=== PATIENT | male | born 1960 | race Caucasian/White ===

== ENCOUNTER 2017-04-22 07:29 | Emergency (ER) | payer BC ==
[2017-04-22] MEDS ORDERED: Albuterol 2.5 MG/3 ML NEB.SOL* (0.083%) INH ONE (08:17)
[2017-04-22] MEDS ORDERED: Ipratropium 0.5MG/2.5ML NEB* 0.5 MG/2.5 ML NEB.SOLN INH ONE (08:17)
[2017-04-22] MEDS ORDERED: Acetaminophen TAB* 325 MG PO ONE (09:04)
[2017-04-22 09:47] VITALS: BP 150/96
--- NOTE | 2017-04-22 11:28 | UC ---
Martin Loya Angela, scribed for Stephenie Alford DO on 04/22/17 at 0818 . General HPI - HPI Summary HPI Summary: This pt is a 57 y/o male presenting to [facility] c/o cough and SOB. He describes "it feels like I am breathing through a wet straw" and feels "bubbles." Pt reports a non-productive cough, but notes it is not keeping him up at night. He notes he feels "numbness" on his chest. Pt states he was diagnosed with influenza 5 days ago and was given Tamiflu, he still has one dose left. Pt notes his symptoms began with chest congestion. Pt reports most of his symptoms have alleviated except for his cough and headache. He has taken aspirin with some relief of headache. Denies sore throat, eye drainage, rhinorrhea, abd pain, nausea. He denies any PMHx. - History of Current Complaint Stated Complaint: CONGESTED Hx Obtained From: Patient Onset/Duration: Lasting Days, Still Present Timing: Constant Current Severity: Moderate Pain Intensity: 0 Aggravating: lying down Alleviating: nothing Associated Signs & Symptoms: Positive: Cough, Headache, SOB, Other - NEG: sore throat, eye drainage, rhinorrhea. Negative: Abdominal Pain, Nausea, Vomiting - Allergy/Home Medications Allergies/Adverse Reactions: Allergies Allergy/AdvReac Type Severity Reaction Status Date / Time Tetracyclines Allergy Hives Verified 04/22/17 07:36 Home Medications: Home Medications Aspirin 3 tab PO DAILY PRN 04/22/17 [History Confirmed 04/22/17] PMH/Surg Hx/FS Hx/Imm Hx Endocrine History: Thyroid Disease Other Cardiovascular History: DENIES: HTN - Surgical History Surgical History: None - Family History Known Family History: Positive: Cardiac Disease - Social History Alcohol Use: None Substance Use Type: None Smoking Status (MU): Never Smoked Tobacco Review of Systems Constitutional: Negative Skin: Negative Eyes: Negative ENT: Negative Respiratory: Shortness Of Breath, Cough Cardiovascular: Negative Gastrointestinal: Negative Genitourinary: Negative Motor: Negative Neurovascular: Negative Musculoskeletal: Arthralgia Neurological: Headache, Numbness - chest Psychological: Negative All Other Systems Reviewed And Are Negative: Yes Physical Exam Triage Information Reviewed: Yes Appearance: Well-Appearing, No Pain Distress, Well-Nourished Vital Signs: Initial Vital Signs Temp 97.7 F 04/22/17 07:36 Pulse 79 04/22/17 07:36 Resp 18 04/22/17 07:36 BP 143/92 04/22/17 07:36 Pulse Ox 98 04/22/17 07:36 Vital Signs Reviewed: Yes Eyes: Positive: Conjunctiva Clear. Negative: Discharge ENT: Positive: TMs normal. Negative: Tonsillar swelling, Tonsillar exudate, Trismus Neck exam: Normal Neck: Positive: Supple Respiratory: Positive: Normal breath sounds, No respiratory distress, No accessory muscle use, Wheezing - scattered wheezes on auscultation Cardiovascular: Positive: RRR, No Murmur Musculoskeletal Exam: Normal Neurological: Positive: Alert, Muscle Tone Normal Psychological Exam: Normal Psychological: Positive: Age Appropriate Behavior Skin Exam: Normal, Other - warm, dry, normal color Re-Evaluation - Re-Evaluation First Eval Re-Evaluation Time: 08:55 Change: Improved Comment: Pt has finished his breathing treatment. Wheezing has improved. Pt is feeling jittery from the duoneb and feels cold. He c/o headache currently. Pt denies chest pain, dizziness. Second Eval Re-Evaluation Time: 09:25 Change: Improved Comment: Pt rested for 15 minutes. Pt is feeling normalized from the jittery experience. Course/Dx - Course Course Of Treatment: In the [facility] course the patient was given a breathing treatment and Tylenol for the headache. Pt felt jittery and cold after the duoneb. He rested for 15 minutes and felt better. Patient will be discharged with prescription for albuterol, Tessalon, mucinex, and prednisone and follow up from PCP. The patient is agreeable with this plan. Medications reviewed. Allergies reviewed. - Differential Dx - Multi-Symptom Provider Diagnoses: Influenza. Bronchospasm. Elevated blood pressure without diagnosis of hypertension Discharge - Discharge Plan Condition: Stable Disposition: HOME Prescriptions: Albuterol HFA INHALER* [Ventolin HFA Inhaler*] 2 puff INH Q4H PRN #1 mdi PRN Reason: Sob/Wheezing Benzonatate CAP* [Tessalon 100 MG CAP*] 100 mg PO TID #30 cap guaiFENesin ER TAB [Mucinex*] 600 mg PO BID PRN #1 box PRN Reason: Cough predniSONE TAB* [Deltasone TAB*] 40 mg PO DAILY #10 tab Patient Education Materials: Influenza (ED), Bronchospasm (ED) Forms: *Gen. Provider Communication, *Work Release Referrals: Sara Wadsworth MD [Primary Care Provider] - (Follow up in 3-5 days.) Additional Instructions: INHALED BRONCHODILATORS: You have received a prescription for an inhaled bronchodilator -- a medication which stimulates the airways in the lung to dilate. This improves the flow of air in asthma, bronchitis, and emphysema. These medicines have some similarity to adrenaline, and can cause similar side effects: shakiness, racing heart, and a sense of nervousness. These side effects decrease with time. Contact your doctor if these side effects are severe. Do not over-use the medicine. Too-frequent use of the inhaler may make it ineffective. Call your doctor if the inhaler is not controlling your symptoms at the prescribed doses. If you find that the Albuterol inhaler makes you as jittery as the nebulizer, you do not need to continue to use it. EXPECTORANT MEDICATION: An expectorant medicine has been prescribed. This type of drug makes mucous thinner, helping the sinuses, nose, and bronchial tubes to remain free of pus and mucous. Expectorants make a cough less severe and more comfortable, and help infected sinuses drain. In general, antihistamines defeat the purpose of the expectorant by making mucous thicker. They should be avoided unless specifically recommended by your physician. TESSALON PERLES: You have received a prescription for Tessalon Perles (benzonatate). This is a non-narcotic medicine for relief of cough. It usually works in about 15- 20 minutes and lasts around four hours. Tessalon Perles should be swallowed. They should not be chewed or dissolved in the mouth (this can produce temporary numbing of the mouth and choking can occur). If you develop any adverse effects such as wheezing, shortness of breath, hives, rash, itching, or lightheadedness, please return at once. CORTICOSTEROID MEDICATION: You have been given a medicine of the cortisone class. This medication is used to control inflammation or allergy. It is usually only given for a short period of time, until the acute process subsides. There are usually no side effects from short-term use of cortisone-like medications. Some persons feel an increased sense of well-being and are not sleepy at bedtime. Long-term use of cortisone medications is best avoided, unless required for a severe condition. If your condition does not remit, or relapses after the course of corticosteroid medication, you should consult your physician. Contact the physician if you develop lightheadedness, black or tarry stools , swelling of the legs, or significant rapid change in weight. Your blood pressure was elevated at this visit. That does not mean you have hypertension, it is probably due to your current condition. Please follow up with your primary care provider. The documentation as recorded by the Martin sotomayor Angela accurately reflects the service I personally performed and the decisions made by me, Stephenie Alford DO.
== END 2017-04-22 10:00 | disposition home or self-care (01) ==
LOC: UCEAST 07:29
DX: J11.1 Influenza due to unidentified influenza virus with other respiratory manifestations (principal); J98.01 Acute bronchospasm; R03.0 Elevated blood-pressure reading, without diagnosis of hypertension; Z79.82 Long term (current) use of aspirin
CPT/HCPCS: 99213; A9270-GY; G0463

== ENCOUNTER 2019-03-02 10:33 | Emergency (ER) | payer BC ==
[2019-03-02] MEDS ORDERED: Meclizine TAB* 12.5 MG PO ONE (12:09)
[2019-03-02] MEDS ORDERED: Ondansetron INJ* 2 MG/ML VIAL IV ONE (12:09)
[2019-03-02] MEDS ORDERED: NS 0.9% 1000 ML** 1,000 ML IV ONE (12:10)
--- NOTE | 2019-03-02 12:54 | UC ---
General HPI - HPI Summary HPI Summary: Patient is a 58-year-old gentleman with a history of hypothyroidism as well as high cholesterol. Patient states he had tenderness of remarkable which he drink lots of fluids and relax. Patient states he was scheduled to return to work on . Patient states he woke up morning when he first got out of bed he noticed he was little bit dizzy. Patient states his balance was off and he was able to work. Patient states yesterday his symptoms were significant and so he stayed in bed all day. States symptoms are better when he lies flat. Patient states at times feel like it spinning when he moves. Patient states if he closes either symptoms improve. Patient has had some nausea but has not vomited. Patient denies any other complaints. No headache, no vision changes, no chest pain or shortness of breath. No diaphoresis. No fever, chills, rash. Patient denies any ear or sinus congestion. Patient without a history of similar. Patient states today he feels a little bit better but not back to normal so he will get checked. Patient's medications is entered in the EMR reviewed. - History of Current Complaint Chief Complaint: UCHeadache Stated Complaint: DIZZY, NAUSEA Time Seen by Provider: 03/02/19 11:56 Hx Obtained From: Patient, Family/Sleeping Car Porter Onset/Duration: Gradual Onset Onset Severity: Moderate Current Severity: Moderate Pain Intensity: 4 - Allergy/Home Medications Allergies/Adverse Reactions: Allergies Allergy/AdvReac Type Severity Reaction Status Date / Time Tetracyclines Allergy Hives Verified 03/02/19 11:28 Home Medications: Home Medications Atorvastatin* [Lipitor 10 MG*] 1 tab PO DAILY 03/02/19 [History Confirmed ] PMH/Surg Hx/FS Hx/Imm Hx Previously Healthy: Yes Endocrine History: Hypothyroidism, Dyslipidemia - Surgical History Surgical History: None - Family History Known Family History: Positive: Cardiac Disease, Non-Contributory - Social History Occupation: Employed Full-time Lives: With Family Alcohol Use: None Substance Use Type: None Smoking Status (MU): Never Smoked Tobacco Review of Systems All Other Systems Reviewed And Are Negative: Yes Constitutional: Positive: Negative Skin: Positive: Negative Eyes: Positive: Negative ENT: Positive: Negative Respiratory: Positive: Negative Cardiovascular: Positive: Negative Gastrointestinal: Positive: Nausea. Negative: Abdominal Pain, Vomiting Genitourinary: Positive: Negative Neurovascular: Positive: Other - This Is Patient Immunocompromised?: No Physical Exam - Summary Physical Exam Summary: Vital Signs Reviewed: Yes A+Ox3, no distress appropriate, eyes open throughout H+P Eyes: Conjunctiva Clear, ALEX. EOM intact and full, no photophobia, pt with 2 beat mild nystagmus to right ENT: Hearing grossly normal TM x 2 clear - scant cerumen in right canal, mmoist , uvula midline, no exudate, no erythema Neck: Positive: Supple Respiratory: Positive: No respiratory distress, No accessory muscle use + CTA throughout no w/r Cardiovascular: RRR nl s1, s2 no m/r CBT <2 sec, no bruit abd soft + BS nt/nd no guarding, no distension Musculoskeletal Exam: DYER x 4 without difficulty Strength Intact, ROM Intact Neurological: Positive: Alert, + sensation throughout CN 2- 12 intact and full Full AROM ext x4 + FNF b/l + heel/cornell b/l Psychological: Positive: Normal Response To examiner Skin: Positive: no rash, no ecchymosis Triage Information Reviewed: Yes Vital Signs: Initial Vital Signs Temp 97.6 F 03/02/19 11:24 Pulse 62 03/02/19 11:24 Resp 16 03/02/19 11:24 BP 138/94 03/02/19 11:24 Pulse Ox 98 03/02/19 11:24 Diagnostics - EKG Cardiac Rate: NL Cardiac Rhythm: Sinus: Normal Ectopy: None ST Segment: Normal EKG Comparison: No Significant Change Re-Evaluation - Re-Evaluation First Eval Re-Evaluation Time: 12:35 Comment: pt states nausea resolved - resting, IVF infusing Second Eval Comment: IVF complete - pt state feels better - eating crackers, no dizziness, urine wnl. will discharge with Rx meclizine. hydrate. strict return precautions. pt and spouse agreement and understanding of plan Course/Dx - Course Course Of Treatment: Patient presents to urgent care stating he's had some episodes of dizziness starting on morning. Patient states they were worse yesterday but improved today. Patient states symptoms are worse when he sits up or when he lies flat. Patient with little by mouth yesterday. Patient reports some mild nausea but no vomiting. Patient states today he feels better but wanted to get checked. On exam vital signs are stable. Patient does have some mild nystagmus to be still the right. Otherwise no other neurologic findings. Patient's EKG was reviewed toward normal sinus without any acute ST-T wave changes. Suspect this is likely peripheral vertigo. Discussed with patient treatment options. We'll place an IV and given 1 L nasal 7. Will give 4 mg of IV Zofran as well as meclizine. After a liter fluid will walk patient for urinary reassess. Patient's spouse, X. Patient does not improve we'll recommend admission for further testing and evaluation. - Diagnoses Provider Diagnosis: Vertigo Discharge ED - Sign-Out/Discharge Documenting (check all that apply): Patient Departure All imaging exams completed and their final reports reviewed: No Studies - Discharge Plan Condition: Stable Disposition: HOME Prescriptions: Meclizine HCl [Motion-Time] 25 mg PO Q8HR PRN #15 tab.chew PRN Reason: Dizziness Patient Education Materials: Vertigo (ED) Forms: *Work Release Referrals: Sara Wadsworth MD [Primary Care Provider] - Additional Instructions: - Stay well hydrated - drink plenty of non-alcoholic, non-caffinated beverages - take meclizine as prescribed - every 8 hours today and tomorrow and then as needed for dizziness - get plenty of restful sleep - Avoid excess fumes, caffeine and all alcohol - AVoid excess visual stimulation (phones, game, TV) - Contact Dr. Wadsworth on Monday to schedule a follow-up appointment. Contact your doctor or go to the emergency department with any question or concerns ( worsening symptoms, fevers, vomiting, headache, vision changes, or any other concerns) - Billing Disposition and Condition Condition: STABLE Disposition: Home
[2019-03-02 13:35] VITALS: BP 151/92
== END 2019-03-02 14:11 | disposition home or self-care (01) ==
LOC: UCEAST 10:33
DX: R42 Dizziness and giddiness (principal); R11.0 Nausea; E78.00 Pure hypercholesterolemia, unspecified; E78.5 Hyperlipidemia, unspecified; Z79.899 Other long term (current) drug therapy; Z88.8 Allergy status to other drugs, medicaments and biological substances
CPT/HCPCS: 81003; 96360; 96374; 99212; A9270-GY; G0463; J2405